=== PATIENT | female | born 1985 | race African-American/Black ===

== ENCOUNTER 2019-01-01 17:39 | Emergency (ER) | payer BC ==
[~2019-01-01] VITALS: Ht 165.1 cm; Wt 80.9 kg
[2019-01-01 17:46] VITALS: TEMP 98.3
[2019-01-01 19:35] VITALS: BP 128/78; PULSE 81
== END 2019-01-01 19:35 | disposition home or self-care (01) ==
LOC: COL.ER 17:39
DX: M25.561 Pain in right knee (principal); M54.9 Dorsalgia, unspecified; V49.50XA Passenger injured in collision with unspecified motor vehicles in traffic accident, initial encounter

== ENCOUNTER → 2019-03-11 | Outpatient (CLI) | payer BC | LOC: COL.RAD 10:05 | DX: R10.13 Epigastric pain (principal) ==

== ENCOUNTER → 2022-11-25 | Outpatient (CLI) | payer OTHER | LOC: MC.RAD 12:00 | DX: N60.11 Diffuse cystic mastopathy of right breast (principal); N60.02 Solitary cyst of left breast ==

== ENCOUNTER → 2023-05-20 | Outpatient (CLI) | payer OTHER | LOC: MC.RAD 13:50 | DX: R92.8 Other abnormal and inconclusive findings on diagnostic imaging of breast (principal) ==